=== PATIENT | male | born 1945 | race Caucasian/White ===

== ENCOUNTER → 2016-08-04 | Outpatient (CLI) | payer OTHER, MEDICARE ==
--- NOTE | 2016-08-04 19:39 | MR ---
MRI Cervical Spine (Without Contrast) 1637 hours History: R26, abnormal gait. Technique: Sagittal T1, T2, axial T2, and 3-D gradient echo MR sequences of the cervical spine withou t contrast. Findings: Reversal of the normal cervical lordosis centered at the C4-C6 level. No cervical compressi on fractures or destructive osseous lesions. Minimal retrolisthesis at C6-C7 and minimal anterolisthe sis at C5-C6. No craniocervical stenosis. Cerebellar tonsils are in normal position. Cervical spinal cord demonstrates normal signal without cord edema or myelomalacia. C2-C3: Mild bilateral facet arthropathy without disk herniation or stenosis. C3-C4: Severe right facet arthropathy and moderate left facet arthropathy resulting in mild to modera te bilateral neural foraminal stenosis, right worse than left, with slight dorsal disk/osteophyte com plex resulting in mild central canal stenosis. C4-C5: Moderate degenerative disk disease with right dorsal disk/osteophyte complex, right uncoverteb ral osteophyte and moderate bilateral facet arthropathy resulting in moderate central canal stenosis with slight cord compression and deformity, ventrally effacement of the subarachnoid space, moderate to severe right neural foraminal stenosis and mild to moderate left neural foraminal stenosis. C5-C6: Moderate degenerative disk disease with dorsal disk/osteophyte complex asymmetrically more pro minent toward the left, bilateral uncovertebral osteophytes, left greater than right, and moderate bi lateral facet arthropathy, left worse than right, resulting in severe central canal stenosis with sli ght cord compression and deformity, effacement of the subarachnoid space, moderate to severe left april ral foraminal stenosis and mild to moderate right neural foraminal stenosis. C6-C7: Moderate degenerative disk disease with left dorsal disk/osteophyte complex, left uncovertebra l osteophyte and mild bilateral facet arthropathy resulting in severe left neural foraminal stenosis, severe central canal stenosis with slight cord compression and deformity, and mild right neural fora aracelis stenosis. C7-T1: Mild bilateral facet arthropathy without disk herniation or stenosis. T1-T2: Moderate bilateral facet arthropathy and minimal anterolisthesis resulting in a mild to modera te bilateral neural foraminal stenosis without central canal stenosis. T2-T3: Severe bilateral facet arthropathy resulting in moderate to severe bilateral neural foraminal stenosis, minimal anterolisthesis, without central canal stenosis. Impression: 1. Moderate degenerative disk disease at C4-C5, C5-C6 and C6-C7 with dorsal disk/osteophyte complexes , bilateral uncovertebral osteophytes and moderate to severe multilevel bilateral facet arthropathy r esulting in moderate to severe central canal stenosis at C4-C5, C5-C6 and C6-C7, worse at C5-C6, and variable multilevel moderate to severe bilateral neural foraminal stenosis, worse on the right at C4- C5, left at C5-C6, and left at C6-C7. 2. No cord edema or myelomalacia. 3. Please see above findings at specific disk levels.
== END ==
LOC: FIMAGING 15:33
PROVIDERS: ATTEND Psychiatry & Neurology Neurology
DX: M50.31 Other cervical disc degeneration, high cervical region (principal); M46.92 Unspecified inflammatory spondylopathy, cervical region; M48.02 Spinal stenosis, cervical region; M46.94 Unspecified inflammatory spondylopathy, thoracic region; M48.04 Spinal stenosis, thoracic region

== ENCOUNTER → 2016-09-21 | Outpatient (CLI) | payer OTHER, MEDICARE | LOC: FIMAGING 08:07 | PROVIDERS: ATTEND Neurological Surgery | DX: M51.36 Other intervertebral disc degeneration, lumbar region (principal); M48.06 Spinal stenosis, lumbar region; M46.96 Unspecified inflammatory spondylopathy, lumbar region; M46.97 Unspecified inflammatory spondylopathy, lumbosacral region ==

== ENCOUNTER → 2018-01-02 | Outpatient (CLI) | payer OTHER, MEDICARE | LOC: BMCIMAGING 13:30 | PROVIDERS: ATTEND Internal Medicine Endocrinology, Diabetes & Metabolism | DX: E04.2 Nontoxic multinodular goiter (principal) ==

== ENCOUNTER → 2018-01-08 | Outpatient (CLI) | payer OTHER, MEDICARE ==
[~2018-01-08] MED LIST: LIDOCAINE 1% 300 MG/30 ML SDV ONE
--- NOTE | 2018-01-08 09:44 | PDRADPN ---
Radiology Procedure Note Date of Procedure: 01/08/18 Radiologist: Rigo Hartman Anesthesia: Local (Specify) Pre-op Diagnosis: B/L thyroid nodules Post-op Diagnosis: same Indication: interval growth Procedure: FNA Finding(s): Heterogeneous bilateral thyroid nodules visualized. US guided FNA of both was performed. Inf/Abcess present in the surg proc area at time of surgery?: No Complications: none Specimen(s): Good specimen volume reported by [employer]
== END ==
LOC: FIMAGING 08:07
PROVIDERS: ATTEND Internal Medicine Endocrinology, Diabetes & Metabolism
PROC: 0G9H3ZX Drainage of Right Thyroid Gland Lobe, Percutaneous Approach, Diagnostic (ICD-10-PCS; principal; 2018-01-08)
PROC: 0G9G3ZX Drainage of Left Thyroid Gland Lobe, Percutaneous Approach, Diagnostic (ICD-10-PCS; principal; 2018-01-08)
DX: E04.2 Nontoxic multinodular goiter (principal)